=== PATIENT | female | born 1985 | race Caucasian/White ===

== ENCOUNTER → 2017-03-26 | Outpatient (CLI) | payer OTHER ==
[~2017-03-26] VITALS: Ht 172.7 cm; Wt 102.7 kg
[~2017-03-26] MED LIST: NITROFURANTOIN100 MG PO; ZOLOFT20 MG/ML PO
[2017-03-26 19:23] VITALS: BP 139/80
== END | disposition home or self-care (01) ==
LOC: IVINF 19:06
DX: Z31.82 Encounter for Rh incompatibility status (principal); O20.9 Hemorrhage in early pregnancy, unspecified
CPT/HCPCS: 99195

== ENCOUNTER 2017-04-18 17:50 | Emergency (ER) | payer OTHER ==
[~2017-04-18] VITALS: Ht 172.7 cm; Wt 106.5 kg
[2017-04-18 18:47] LABS: HEMATOCRIT 35.7 % (36.0-46.0); MCHC 34.2 G/DL (30.0-36.0); MCV 87.9 FL (83-99); MEAN PLAT.VOLUME 9.7 uM^3 (9.5-12.4); PLATELET COUNT 263 K/uL (156-360); RBC DIS.WIDTH-SD 39.1 % (39-53); RED BLOOD COUNT 4.06 M/uL (3.80-5.20); WHITE BLOOD COUNT 11.7 K/uL (4.1-10.2)
[2017-04-18 20:22] LABS: ADD MIUA? YES; BILIRUBIN NEGATIVE; BLOOD LARGE; COLOR YELLOW ((YELLOW)); GLUCOSE (STRIP) NEGATIVE; KETONES NEGATIVE; LEUKOCYTES NEGATIVE; NITRITE NEGATIVE; PROTEIN (STRIP) NEGATIVE; UROBILINOGEN 0.2 MG/DL (0.2-1.0)
[2017-04-18 20:30] LABS: BACTERIA RARE /HPF; CALCIUM OXALATE CRYSTALS 2+ /HPF; EPITHELIAL CELLS NONE SEEN /HPF; MUCUS TRACE /LPF; RED BLOOD CELLS TNTC /HPF (0-5); UCUL ADDED? NO; UNCLASSIFIED CRYSTALS 2+ /HPF; WHITE BLOOD CELLS 0-5 /HPF (0-5)
[2017-04-19 00:45] VITALS: BP 101/82
== END 2017-04-19 00:45 | disposition home or self-care (01) ==
LOC: EME 17:50
DX: O20.0 Threatened abortion (principal); O20.9 Hemorrhage in early pregnancy, unspecified; Z3A.09 9 weeks gestation of pregnancy
CPT/HCPCS: 76801; 81003; 84702; 85027; 86870; 86900; 86901; 99281; 99284; J2788; J2790

== ENCOUNTER → 2017-08-27 | Outpatient (CLI) | payer OTHER ==
[~2017-08-27] VITALS: Ht 172.7 cm; Wt 115.0 kg
[2017-08-27 13:10] VITALS: BP 131/74
== END | disposition home or self-care (01) ==
LOC: IVINF 12:53
DX: Z31.82 Encounter for Rh incompatibility status (principal); Z3A.28 28 weeks gestation of pregnancy
CPT/HCPCS: 96372; J2790

== ENCOUNTER 2017-10-05 04:54 | Inpatient (IN) | payer OTHER ==
[2017-10-05] VITALS (7 sets, daily range): BP systolic 119–140; BP diastolic 70–82
[~2017-10-05] VITALS: Ht 172.7 cm; Wt 122.7 kg
[2017-10-05 07:12] LABS: EOSINOPHIL (%) 0.5 % (0-5); EOSINOPHIL COUNT 0.1 K/uL (0-0.3); HEMATOCRIT 33.5 % (36.0-46.0); IMMATURE GRANULOCYTE (%) 1.7 % (0.0-0.7); IMMATURE GRANULOCYTE COUNT 0.2 K/uL; INSTRUMENT ABS NEUTROPHIL CT 10.4 K/uL; LYMPHOCYTE COUNT 2.7 K/uL (1.0-2.8); MCH 29.7 PG (29.0-34.0); MCV 87.2 FL (83-99); MEAN PLAT.VOLUME 10.8 uM^3 (9.5-12.4); MONOCYTE (%) 6.5 % (3-12); MONOCYTE COUNT 0.9 K/uL (0-0.8); NEUTROPHIL (%) 72.1 % (45-76); NEUTROPHIL COUNT 10.4 K/uL (1.8-6.4); PLATELET COUNT 233 K/uL (156-360); RBC DIS.WIDTH-CV 13.2 % (11.8-14.6); RBC DIS.WIDTH-SD 41.5 % (39-53); RED BLOOD COUNT 3.84 M/uL (3.80-5.20); WHITE BLOOD COUNT 14.4 K/uL (4.1-10.2)
[2017-10-05 09:22] LABS: ADD MIUA? YES; BILIRUBIN NEGATIVE; BLOOD SMALL; COLOR STRAW ((YELLOW)); GLUCOSE (STRIP) NEGATIVE; KETONES NEGATIVE; LEUKOCYTES NEGATIVE; NITRITE NEGATIVE; PROTEIN (STRIP) NEGATIVE; SPECIFIC GRAVITY 1.005 (1.000-1.030); UROBILINOGEN 0.2 MG/DL (0.2-1.0)
[2017-10-05 09:43] LABS: BACTERIA 1+ /HPF; EPITHELIAL CELLS 1+ /HPF; MUCUS TRACE /LPF; UCUL ADDED? NO; WHITE BLOOD CELLS 0-5 /HPF (0-5)
[2017-10-06 03:16] VITALS: BP 118/64
[2017-10-06 08:06] VITALS: BP 122/65
[2017-10-06] MEDS ORDERED: PRENATAL TABLE1 EAC3 PO (08:16)
[2017-10-06 10:58] VITALS: BP 123/73
[2017-10-06 14:48] VITALS: BP 141/82
[2017-10-06 19:26] VITALS: BP 131/73
[2017-10-06 22:25] VITALS: BP 128/68
[2017-10-07] VITALS (7 sets, daily range): BP systolic 116–125; BP diastolic 63–76
[2017-10-08] VITALS (9 sets, daily range): BP systolic 110–130; BP diastolic 58–88
[2017-10-08 06:26] LABS: BASOPHIL COUNT 0.1 K/uL (0-0.1); EOSINOPHIL (%) 0.6 % (0-5); EOSINOPHIL COUNT 0.1 K/uL (0-0.3); HEMATOCRIT 31.7 % (36.0-46.0); IMMATURE GRANULOCYTE (%) 2.6 % (0.0-0.7); IMMATURE GRANULOCYTE COUNT 0.4 K/uL; INSTRUMENT ABS NEUTROPHIL CT 8.9 K/uL; LYMPHOCYTE COUNT 3.3 K/uL (1.0-2.8); MCH 28.9 PG (29.0-34.0); MCHC 33.1 G/DL (30.0-36.0); MCV 87.3 FL (83-99); MEAN PLAT.VOLUME 10.3 uM^3 (9.5-12.4); MONOCYTE (%) 7.3 % (3-12); NEUTROPHIL (%) 64.8 % (45-76); NEUTROPHIL COUNT 8.9 K/uL (1.8-6.4); PLATELET COUNT 238 K/uL (156-360); RBC DIS.WIDTH-CV 13.2 % (11.8-14.6); RBC DIS.WIDTH-SD 42.4 % (39-53); RED BLOOD COUNT 3.63 M/uL (3.80-5.20); WHITE BLOOD COUNT 13.7 K/uL (4.1-10.2)
[2017-10-09 03:14] VITALS: BP 108/53
[2017-10-09 06:56] LABS: EOSINOPHIL (%) 0.6 % (0-5); EOSINOPHIL COUNT 0.1 K/uL (0-0.3); IMMATURE GRANULOCYTE (%) 1.4 % (0.0-0.7); IMMATURE GRANULOCYTE COUNT 0.2 K/uL; INSTRUMENT ABS NEUTROPHIL CT 9.9 K/uL; LYMPHOCYTE COUNT 2.8 K/uL (1.0-2.8); MCH 28.9 PG (29.0-34.0); MCHC 32.3 G/DL (30.0-36.0); MCV 89.3 FL (83-99); MEAN PLAT.VOLUME 10.6 uM^3 (9.5-12.4); MONOCYTE (%) 8.3 % (3-12); MONOCYTE COUNT 1.2 K/uL (0-0.8); NEUTROPHIL COUNT 9.9 K/uL (1.8-6.4); PLATELET COUNT 186 K/uL (156-360); RBC DIS.WIDTH-CV 13.2 % (11.8-14.6); RBC DIS.WIDTH-SD 43.1 % (39-53); RED BLOOD COUNT 2.91 M/uL (3.80-5.20); WHITE BLOOD COUNT 14.1 K/uL (4.1-10.2)
[2017-10-09 12:25] VITALS: BP 101/57
[2017-10-09 21:09] VITALS: BP 113/72
[2017-10-09 23:59] VITALS: BP 115/59
[2017-10-10 02:55] VITALS: BP 112/63
[2017-10-10 08:01] VITALS: BP 116/74
[2017-10-10 15:20] VITALS: BP 117/59
[2017-10-10 23:30] VITALS: BP 102/71
[2017-10-11 15:15] VITALS: BP 123/68
[2017-10-12] MEDS ORDERED: IBUPROFEN800 MG PO (07:07)
[2017-10-12] MEDS ORDERED: FERROUS SULFAT325 MG PO (07:07)
[2017-10-12] MEDS ORDERED: DOCUSATE SODIU100 MG PO (07:07)
[2017-10-12] MEDS ORDERED: ACETAMINOPHEN-1 EAC1 PO (07:07)
[2017-10-12 08:14] VITALS: BP 132/66
== END 2017-10-12 15:20 | disposition home or self-care (01) | DRG 765 ==
LOC: LDRP-OP 04:54 → 2WEST 04:55 → LDRP-OP 12-19 13:11
PROVIDERS: Advanced Practice Midwife; Obstetrics & Gynecology
PROC: 10D00Z1 Extraction of Products of Conception, Low, Open Approach (ICD-10-PCS; principal; 2017-10-05)
DX: O32.1XX0 Maternal care for breech presentation, not applicable or unspecified (principal); O60.14X0 Preterm labor third trimester with preterm delivery third trimester, not applicable or unspecified; O42.913 Preterm premature rupture of membranes, unspecified as to length of time between rupture and onset of labor, third trimester; O69.81X0 Labor and delivery complicated by cord around neck, without compression, not applicable or unspecified; O99.824 Streptococcus B carrier state complicating childbirth; O99.02 Anemia complicating childbirth; D62 Acute posthemorrhagic anemia; O99.214 Obesity complicating childbirth; E66.9 Obesity, unspecified; Z68.33 Body mass index [BMI] 33.0-33.9, adult; Z87.891 Personal history of nicotine dependence; Z3A.33 33 weeks gestation of pregnancy; Z37.0 Single live birth
CPT/HCPCS: 76805; 81003; 83030; 85025; 86850; 86870; 86900; 86901; 86905; 86920; 87077; 87081; 87086; 87186; 88307; J0290; J0690; J0702; J1100; J1885; J2274; J2405; J2765; J2790; J3010; J7050; J7120